=== PATIENT | female | born 1985 | race Caucasian/White ===

== ENCOUNTER 2024-11-11 09:58 | Outpatient (REF) | payer BC, SELFPAY ==
[2024-11-11 12:05] LABS: Estimated Average Glucose 100 mg/dL; Hemoglobin A1C 113.5416 umol/L; Hemoglobin A1c % 5.1 % (<6.0); Total Hemoglobin (HGBA1C) 3571.9919 umol/L
[2024-11-11 12:10] LABS: Anion Gap 11 (12-20); Blood Urea Nitrogen 13 mg/dL (9-16); Calcium 8.8 mg/dL (8.4-10.2); Carbon Dioxide 25 mmol/L (22-29); Chloride 107 mmol/L (96-108); Cholesterol 248 mg/dL (<200); Estimated Glomerular Filt Rate > 60; Glucose Random 102 mg/dL (60-115); HDL Cholesterol 88 mg/dL (>40); LDL Cholesterol Calculated 138 mg/dL (<100); Potassium 4.3 mmol/L (3.3-5.1); Sodium 139 mmol/L (135-145); Triglycerides 110 mg/dL (<150)
== END 2024-11-11 09:59 | disposition home or self-care (01) ==
LOC: HO.HHCL 09:58
PROVIDERS: Visit Provider Internal Medicine Geriatric Medicine
DX: Z00.00 Encounter for general adult medical examination without abnormal findings (principal); Z13.6 Encounter for screening for cardiovascular disorders; Z13.1 Encounter for screening for diabetes mellitus
CPT/HCPCS: 36415; 80048; 80061; 83036